=== PATIENT | male | born 1950 | race Two or more races ===

== ENCOUNTER 2017-12-11 12:36 | Emergency (ER) | payer OTHER ==
[~2017-12-11] VITALS: Ht 185.4 cm; Wt 93.4 kg
[~2017-12-11 12:36] MED LIST: ASA81 MG; CARDIZEM30 MG; CIPRO500 MG PO; HUMULIN 70/30 V10 ML SUBCUTANEO; INTESTINEX1 CA1 PO; LIPITOR20 MG; LISINOPRIL20 MG; LYRICA100 MG; METFORMIN HCL500 MG PO; NAMENDA5 MG; NOVOLIN 70100 UNIT/1; PERCOCET 5/321 UDTAB PO; RECTICARE30 GM TP; VITAMIN B122500 MC1
== END 2017-12-11 15:49 | disposition home or self-care (01) ==
LOC: ER 12:36
DX: S90.821A Blister (nonthermal), right foot, initial encounter (principal); L03.115 Cellulitis of right lower limb; W26.8XXA Contact with other sharp object(s), not elsewhere classified, initial encounter; Y93.89 Activity, other specified; Y92.89 Other specified places as the place of occurrence of the external cause; Y99.8 Other external cause status

== ENCOUNTER 2018-01-10 08:02 | Outpatient (CLI) | payer OTHER | END 2018-01-10 08:05 | disposition home or self-care (01) | LOC: NUCLEAR 08:02 | DX: I82.401 Acute embolism and thrombosis of unspecified deep veins of right lower extremity (principal) ==

== ENCOUNTER 2018-11-07 06:06 | Day surgery (SDC) | payer OTHER | END 2018-11-07 10:45 | disposition home or self-care (01) | LOC: AMB-ENDOS 06:06 | DX: D12.5 Benign neoplasm of sigmoid colon (principal); K63.5 Polyp of colon; K64.8 Other hemorrhoids; D17.79 Benign lipomatous neoplasm of other sites ==

== ENCOUNTER 2019-07-31 07:23 | Outpatient (CLI) | payer OTHER | END 2019-07-31 17:00 | disposition home or self-care (01) | LOC: TOM 07:23 | DX: R27.0 Ataxia, unspecified (principal) ==

== ENCOUNTER 2020-04-09 07:55 | Emergency (ER) | payer OTHER ==
[~2020-04-09] VITALS: Ht 185.4 cm; Wt 88.5 kg
== END 2020-04-09 11:19 | disposition home or self-care (01) ==
LOC: ER 07:55
DX: R20.0 Anesthesia of skin (principal)

== ENCOUNTER 2020-04-18 13:50 | Emergency (ER) | payer OTHER ==
[~2020-04-18] VITALS: Ht 185.4 cm; Wt 83.9 kg
[2020-04-18] MEDS ORDERED: DIAZEPAM2 MG (14:01)
== END 2020-04-18 20:29 | disposition home or self-care (01) ==
LOC: ER 13:50
DX: I47.1 Supraventricular tachycardia (principal); Z03.818 Encounter for observation for suspected exposure to other biological agents ruled out; R19.7 Diarrhea, unspecified

== ENCOUNTER 2020-05-28 10:12 | Outpatient (CLI) | payer OTHER ==
[~2020-05-28 10:12] MED LIST changes: +DIAZEPAM2 MG
== END 2020-05-28 15:00 | disposition home or self-care (01) ==
LOC: LAB 10:12
PROVIDERS: ATTEND Surgery
DX: K60.3 Anal fistula (principal); K62.89 Other specified diseases of anus and rectum; Z86.010 Personal history of colon polyps; D12.5 Benign neoplasm of sigmoid colon; D12.4 Benign neoplasm of descending colon; D12.3 Benign neoplasm of transverse colon

== ENCOUNTER 2020-06-10 08:05 | Day surgery (SDC) | payer OTHER | END 2020-06-10 12:50 | disposition home or self-care (01) | LOC: AMB-ENDOS 08:05 | PROVIDERS: ATTEND Surgery | DX: K62.89 Other specified diseases of anus and rectum (principal); K64.8 Other hemorrhoids; Z20.828 Contact with and (suspected) exposure to other viral communicable diseases ==

== ENCOUNTER 2020-07-17 06:29 | Outpatient (CLI) | payer OTHER | END 2020-07-17 06:43 | disposition home or self-care (01) | LOC: LAB 06:29 | PROVIDERS: ATTEND Internal Medicine Hematology & Oncology | DX: D50.8 Other iron deficiency anemias (principal); D51.1 Vitamin B12 deficiency anemia due to selective vitamin B12 malabsorption with proteinuria; D51.0 Vitamin B12 deficiency anemia due to intrinsic factor deficiency; C25.9 Malignant neoplasm of pancreas, unspecified; R97.8 Other abnormal tumor markers; R97.0 Elevated carcinoembryonic antigen [CEA]; R97.20 Elevated prostate specific antigen [PSA]; D69.49 Other primary thrombocytopenia; B20 Human immunodeficiency virus [HIV] disease; B17.8 Other specified acute viral hepatitis; Z11.59 Encounter for screening for other viral diseases; D68.8 Other specified coagulation defects; D69.1 Qualitative platelet defects; N18.3 Chronic kidney disease, stage 3 (moderate); D63.1 Anemia in chronic kidney disease; E11.9 Type 2 diabetes mellitus without complications; M51.86 Other intervertebral disc disorders, lumbar region; M51.85 Other intervertebral disc disorders, thoracolumbar region; E78.2 Mixed hyperlipidemia ==

== ENCOUNTER → 2021-07-31 12:21 | Outpatient (CLI) | payer OTHER | END | disposition home or self-care (01) | LOC: LAB 12:21 | PROVIDERS: ATTEND Internal Medicine | DX: D68.8 Other specified coagulation defects (principal) ==

== ENCOUNTER → 2021-09-24 | Outpatient (CLI) | payer OTHER | END | disposition home or self-care (01) | LOC: NUCLEAR 07:38 | PROVIDERS: ATTEND Surgery | DX: I87.2 Venous insufficiency (chronic) (peripheral) (principal) ==

== ENCOUNTER → 2021-10-28 10:22 | Outpatient (CLI) | payer OTHER | END | disposition home or self-care (01) | LOC: NUCLEAR 10:22 | PROVIDERS: ATTEND Surgery | DX: I73.9 Peripheral vascular disease, unspecified (principal) ==

== ENCOUNTER 2022-01-09 14:01 | Emergency (ER) | payer OTHER ==
[~2022-01-09] VITALS: Ht 182.9 cm; Wt 90.7 kg
[2022-01-09] MEDS ORDERED: ZESTRIL40 M1 PO (14:25)
[2022-01-09] MEDS ORDERED: LIPITOR40 M1 PO (14:26)
== END 2022-01-09 17:33 | disposition home or self-care (01) ==
LOC: ER 14:01
DX: M25.561 Pain in right knee (principal)

== ENCOUNTER 2025-01-16 13:00 | Outpatient (CLI) | payer OTHER ==
[~2025-01-16 13:00] MED LIST changes: +LIPITOR40 M1 PO; +ZESTRIL40 M1 PO
== END 2025-01-16 13:01 | disposition home or self-care (01) ==
LOC: NUCLEAR 13:00
PROVIDERS: ATTEND Internal Medicine Cardiovascular Disease
DX: I82.409 Acute embolism and thrombosis of unspecified deep veins of unspecified lower extremity (principal); I87.2 Venous insufficiency (chronic) (peripheral)